=== PATIENT | male | born 1970 | race Two or more races ===

== ENCOUNTER 2019-04-11 13:04 | Emergency (ER) | payer SELFPAY ==
[~2019-04-11] VITALS: Ht 172.7 cm; Wt 70.3 kg
[2019-04-11 13:32] VITALS: BP 136/98
--- NOTE | 2019-04-11 13:32 | NUR ---
ED Nurse Note: PT CAME IN FOR MEDICAL CLEARANCE. PT C/O RIGHT ARM PAIN AND ON TRAUMA RELATED. POLICE WITH THE PT AND UNDER CUSTODY.
--- NOTE | 2019-04-11 13:59 | Emergency Room Report ---
History of Present Illness General Chief Complaint: Medical Clearance Source: Patient Present Illness HPI 49-year-old male presents to the emergency department complaining of 9 out of 10 severity pain to the right forearm times over 5 months. Patient reports he had surgery performed after breaking both bones in the forearm and he has hardware in place. He denies additional trauma or fall. He states he has been having persistent pain ever since surgery. He denies erythema he denies warmth he denies paresthesias or loss of gross motor movements to the extremity. Patient reports after surgery he had to have skin graft placed. No other aggravating or relieving factors at this time. Nuys chest pain, palpitations, shortness of breath or dyspnea. Allergies: Uncoded Allergies: PENICILLIN (Allergy, Unknown, 03/07/19) THC (Allergy, Unknown, 03/07/19) Patient History Past Medical History: see triage record Past Surgical History: none Pertinent Family History: none Reviewed Nursing Documentation: PMH: Agreed; PSxH: Agreed Nursing Documentation-PMH Past Medical History: No Stated History Review of Systems All Other Systems: negative except mentioned in HPI Physical Exam Vital Signs Date Time Temp Pulse Resp B/P (MAP) Pulse Ox O2 Delivery O2 Flow Rate FiO2 04/11/19 13:19 98.6 103 20 136/98 (111) 98 Room Air Sp02 EP Interpretation: reviewed, normal General Appearance: no apparent distress, alert, GCS 15, non-toxic Head: normocephalic, atraumatic Eyes: bilateral eye normal inspection, bilateral eye PERRL ENT: hearing grossly normal, normal voice Neck: full range of motion Respiratory: lungs clear, normal breath sounds, speaking full sentences Cardiovascular #1: regular rate, rhythm, normal capillary refill Cardiovascular #2: 2+ radial (R), 2+ radial (L), 2+ femoral (R) Gastrointestinal: non tender, soft Musculoskeletal: normal range of motion, gait/station normal, non-tender Neurologic: alert, motor strength/tone normal, oriented x3, sensory intact, responsive, speech normal Psychiatric: judgement/insight normal Skin: wd healing/no infection noted - Right forearm skin graft at previous surgical incision site. Lymphatic: no adenopathy Medical Decision Making PA Attestation Dr. Wilson Is my supervising Physician whom patient management has been discussed with. Diagnostic Impression: Primary Impression: Arm pain, right Additional Impression: Medical clearance for incarceration ER Course 49-year-old male presents to the emergency department complaining of 9 out of 10 severity pain to the right forearm times over 5 months. Patient reports he had surgery performed after breaking both bones in the forearm and he has hardware in place. He denies additional trauma or fall. He states he has been having persistent pain ever since surgery. He denies erythema he denies warmth he denies paresthesias or loss of gross motor movements to the extremity. Patient reports after surgery he had to have skin graft placed. No other aggravating or relieving factors at this time. Nuys chest pain, palpitations, shortness of breath or dyspnea. Ddx considered but are not limited to Head Trauma, [place], ACS, SI/HI, URI, SAH, Fractures, Dislocations, Tazer barbs, Abrasions. Vital signs: are WNL, pt. is afebrile H&PE are most consistent with: normal limited physical examination. --- No evidence of infection at this time wound appears to be healing well. No new additional trauma which would require emergent imaging at this time. She is in no acute distress and nontoxic in appearance. ORDERS: none required at this time, the diagnosis is clinical ED INTERVENTIONS: None required at this time. DISCHARGE: At this time pt. is stable for d/c to law enforcement. Will provide printed patient care instructions, and any necessary prescriptions. Care plan and follow up instructions have been discussed with the patient prior to discharge. Last Vital Signs Date Time Temp Pulse Resp B/P (MAP) Pulse Ox O2 Delivery O2 Flow Rate FiO2 04/11/19 13:32 98.6 103 20 136/98 98 Room Air Disposition: HOME, SELF-CARE Condition: Stable Scripts No Active Prescriptions or Reported Meds Referrals: [facility] Departure Forms: Snf Clearance Patient Instructions: Medical Screening Exam Additional Instructions: ~ ~ An emergent medical condition has not been identified based on this patients presentation, exam and any necessary testing/imaging. The patient is determined to be stable for outpatient follow-up and management of symptoms by a primary care provider. IT is safe for healed wound to come in contact with water. Take any previously prescribed medications as directed. Follow up with a Primary Care Provider in 3-5 days, even if your symptoms have resolved. --Please review list of primary care clinics, if you do not already have a primary care provider Return sooner to ED if new symptoms occur, or current symptoms become worse. - Please note that this Emergency Department Report was dictated using [employer] helper technology software, occasionally this can lead to erroneous entry secondary to interpretation by the dictation equipment. Irene Booker Apr 11, 2019 13:59
[2019-04-11 14:29] VITALS: BP 132/94
--- NOTE | 2019-04-11 14:30 | NUR ---
ER DISCHARGE NOTE: Patient is cleared to be discharged per ERMD, pt is aox4, on room air, with stable vital signs. pt was given dc instructions, pt was able to verbalize understanding, pt id bandremoved. pt is able to ambulate with steady gait. pt took all belongings.
== END 2019-04-11 14:30 | disposition home or self-care (01) ==
LOC: EMR 14:30
DX: M79.631 Pain in right forearm (principal); Z88.0 Allergy status to penicillin; Z88.8 Allergy status to other drugs, medicaments and biological substances
CPT/HCPCS: 99281